=== PATIENT | female | born 1995 | race African-American/Black ===

== ENCOUNTER 2019-05-04 11:08 | Emergency (ER) | payer SELFPAY ==
[2019-05-04] MEDS ORDERED: morphine CARPU-JECT 4 MG/1 ML DISP.SYRIN IVPUSH ONE (11:37)
[2019-05-04] MEDS ORDERED: morphine SULFATE 4 MG/ML VIAL ONE (11:47)
[2019-05-04 11:52] VITALS: BP 134/98; PULSE 69; TEMP 97.6; BMI 39.9
[2019-05-04 12:21] LABS: BASO % 0.3 % (0-2.0); EOS % 0.2 % (0-4.5); HEMATOCRIT 37.5 % (32.4-45.2); HEMOGLOBIN 12.5 GM/dL (10.7-15.3); LYMPH % 14.5 % (8-40); MCH 28.1 pg (25.7-33.7); MCHC 33.3 g/dl (32.0-36.0); MEAN CELL VOLUME 84.3 fl (80-96); MEAN PLT VOLUME 8.5 fl (7.5-11.1); MONO % 4.5 % (3.8-10.2); NEUT % 80.5 % (42.8-82.8); PLATELET COUNT 317 K/MM3 (134-434); RBC 4.45 M/mm3 (3.60-5.2); RDW 14.1 % (11.6-15.6); WHITE BLOOD COUNT 7.4 K/mm3 (4.0-10.0)
--- NOTE | 2019-05-04 12:24 | PDOC ---
History of Present Illness - General Stated Complaint: BACK,ABD PAIN Time Seen by Provider: 05/04/19 11:30 - History of Present Illness Initial Comments: 05/04/19 11:59 The patient is a 24 year old female with a PMH asthma and eczema who presents with acute onset of back and abdominal pain. Patient woke patient from sleep around 7 a.m. and is intermittent, cramping and radiates from her back to her left lower abdomen. Multiple episodes of greenish emesis. No fevers/chills, no dysuria, hematuria, increased urgency/frequency. Last PO intake was yesterday. Last BM yesterday evening and was normal. NKDA Surgical: none reported Past History - Past Medical History Allergies/Adverse Reactions: Allergies Allergy/AdvReac Type Severity Reaction Status Date / Time No Known Allergies Allergy Verified 05/04/19 11:31 COPD: No - Suicide/Smoking/Psychosocial Hx Smoking History: Unknown if ever smoked Have you smoked in the past 12 months: No Hx Alcohol Use: No Drug/Substance Use Hx: No Review of Systems - Review of Systems Constitutional: No: Chills, Fever Respiratory: No: Cough, Shortness of Breath Cardiac (ROS): No: Chest Pain, Lightheadedness, Palpitations, Syncope ABD/GI: Yes: Vomiting, Abdominal cramping (intermittent sharp, LLQ/L flank). No : Constipated, Diarrhea : No: Burning, Frequency, Urgency *Physical Exam - Vital Signs Last Vital Signs Temp Pulse Resp BP Pulse Ox 97.6 F 69 16 134/98 100 05/04/19 11:10 05/04/19 11:10 05/04/19 11:10 05/04/19 11:10 05/04/19 11:10 - Physical Exam Comments: Triage VS reviewed @ initial presentation patient uncomfortable, tearful, LLQ abdominal TTP; full PE deferred until s/p analgesia General Appearance: Yes: Nourished, Obese, Other (PE performed s/p analgesia) HEENT: positive: Normal Voice, Hearing Grossly Normal Neck: positive: Trachea midline, Supple Respiratory/Chest: positive: Lungs Clear, Normal Breath Sounds Cardiovascular: positive: Regular Rhythm, S1, S2 Vascular Pulses: Dorsalis-Pedis (R): 2+, Doralis-Pedis (L): 2+ Gastrointestinal/Abdominal: positive: Other (soft, LLQ TTP w/o peritoneal sign, L CVAT). negative: Hernia, Mass Extremity: positive: Normal Capillary Refill, Normal Inspection Integumentary: positive: Normal Color, Dry, Warm Neurologic: positive: truer pinion and wheel II-XII NML intact, Fully Oriented, Alert ED Treatment Course - LABORATORY CBC & Chemistry Diagram: 05/04/19 12:10 05/04/19 12:10 - RADIOLOGY Radiology Studies Ordered: Category Date Time Status TRANSVAGINAL ULTRASOUND US [US] Stat Ultrasound 05/04/19 11:37 Ordered Medical Decision Making - Medical Decision Making 05/04/19 12:55 24 y/o female with acute onset of abdominal/back pain. VS unremarkable Consider ovarian torsion, ectopic vs. renal stone less likely diverticulitis, SBO,mesenteric ischemia, bowel perforation. TVUS, Basic Labs, Urine pending. Morphine for analgesia Will consider CTAP if no torsion/ectopic. 05/04/19 14:46 Urine negative TVUS shows no torsion; patient refusing pelvic exam Patient reassessed @ bedside, analgesia achieved with Morphine for 2-3 hours, however now stating pain has returned; clinical suspicion for renal calculi, will obtain CTAP + Toradol 05/04/19 18:37 CBC, CMP unremarkable CTAP shows: A 3 - 4 mm left ureterovesical junction calculus is seen with resultant mild hydronephrosis. A 2 mm nonobstructing left renal calyceal calculus is noted. UA shows 2+ blood c/w nephrolithiasis Will discharge patient with home with supportive care and referral to urology Clinical Impression: Nephrolithiasis, Initial presentation I discussed the physical exam findings, ancillary test results and final diagnoses with the patient. I answered all of the patient's questions. The patient was satisfied with the care received and felt comfortable with the discharge plan and treatment plan. The patient will return to the Emergency Department with any new, persistent or worsening symptoms. *DC/Admit/Observation/Transfer Diagnosis at time of Disposition: Nephrolithiasis - Discharge Dispostion Disposition: HOME Condition at time of disposition: Good Decision to Admit order: No - Referrals Referrals: Adonay Aranda MD [Primary Care Provider] - Chris Cope MD [Staff Physician] - - Patient Instructions Printed Discharge Instructions: Kidney Stones -- Adult Additional Instructions: You were evaluated today for your abdominal pain. A cat scan of your abdomen showed kidney stones. At this time you are safe for discharge home. You must follow up with a urologist, we have provided a referral or you can call your insurance company for a list of urologists. Drink plenty of water and follow the instructions provided in your discharge paperwork. Return to the ED for any new/worsening/concerning symptoms. - Post Discharge Activity
[2019-05-04 12:44] LABS: INR 0.97 (0.83-1.09); PROTHROMBIN TIME (PATIENT) 11.5 SEC (9.7-13.0)
[2019-05-04 12:46] LABS: ACTIVATED PTT 26.3 SECONDS (25.2-36.5)
[2019-05-04 12:54] LABS: ALBUMIN 4.3 g/dl (3.4-5.0); BILIRUBIN,TOTAL 0.4 mg/dL (0.2-1); BLOOD UREA NITROGEN 12.6 mg/dL (7-18); CALCIUM 9.4 mg/dL (8.5-10.1); POTASSIUM 4.1 mmol/L (3.5-5.1); TOT PROT 7.5 g/dl (6.4-8.2)
--- NOTE | 2019-05-04 13:11 | PDOC ---
Attending Attestation - Resident Resident Name: Lorraine Agruello - ED Attending Attestation I have performed the following: I have examined & evaluated the patient, The case was reviewed & discussed with the resident, I agree w/resident's findings & plan - HPI HPI: 05/04/19 13:08 Healthy 24-year-old female with no significant past medical history other than asthma presents with acute onset of left low back/left groin pain that awoke her from sleep this morning, constant with varying severity Lillian associated with nausea/nonbloody nonbilious vomiting. No abdominal pain, no history of kidney stones or known ovarian cysts, LMP was 8/20 but was a solutions [employer] menses than usual. - Physicial Exam PE: 05/04/19 13:08 Vital signs stable. negative. On arrival, patient was in moderate to severe distress with active retching/ vomiting, on my examination status post morphine patient is much more comfortable and smiling No jaundice or pallor Heart is regular, lungs are clear Abdomen is soft/nondistended. Tender in the left pelvic region with some guarding, no rebound. Mild left CVA discomfort. No palpable hernias or masses. - Medical Decision Making 05/04/19 13:09 24-year-old female with acute onset left low back/pelvic pain, question renal colic versus BEEF PLUCK TRIMMER etiology, negative ruling out ectopic, question cyst/ torsion. Seems less likely GI related. Labs, urinalysis Will need imaging, Transvaginal ultrasound or CT abdomen and pelvis pending results Pain control Reassess 05/04/19 17:35 + L UVJ stone with mild hydro. UA without evidence of infection. feels better after meds, stable for d/c with f/u
[2019-05-04] MEDS ORDERED: SODIUM CHLORIDE 0.9% 500 ML INFUS.BAG IV ONE (14:51)
[2019-05-04] MEDS ORDERED: KETOROLAC TROMETHAMINE 30 MG/1 ML VIAL IVPUSH ONE (14:52)
[2019-05-04] MEDS ORDERED: KETOROLAC TROMETHAMINE 30 MG/1 ML VIAL ONE (16:28)
[2019-05-04 17:17] LABS: EPI CELLS 4.2 /HPF (0-5/HPF); HYALINE CASTS 5 /lpf (0-8); URINE APPEARANCE CLEAR; URINE BACTERIA 4.4 /hpf (NEGATIVE); URINE BILIRUBIN NEGATIVE (NEGATIVE); URINE COLOR YELLOW; URINE GLUCOSE (UA) NEGATIVE (NEGATIVE); URINE KETONE 1+ (NEGATIVE); URINE LEUK ESTERASE NEGATIVE (NEGATIVE); URINE NITRITE NEGATIVE (NEGATIVE); URINE PROTEIN NEGATIVE (NEGATIVE); URINE RBC 12 /hpf (0-4); URINE UROBILINOGEN 0.2 mg/dL (0.2-1.0); URINE WBC 3 /hpf (0-5)
== END 2019-05-04 19:15 | disposition home or self-care (01) ==
LOC: JER 11:08
PROC: 3E0333Z Introduction of Anti-inflammatory into Peripheral Vein, Percutaneous Approach (ICD-10-PCS; principal; 2019-05-04)
PROC: 3E033NZ Introduction of Analgesics, Hypnotics, Sedatives into Peripheral Vein, Percutaneous Approach (ICD-10-PCS; 2019-05-04)
PROC: 3E0337Z Introduction of Electrolytic and Water Balance Substance into Peripheral Vein, Percutaneous Approach (ICD-10-PCS; 2019-05-04)
DX: N20.0 Calculus of kidney (principal)
CPT/HCPCS: 36415; 74176-TC; 76830-TC; 80053; 81003; 84703; 85025; 85610; 85730; 86850; 86900; 86901; 87086; 99283-25

== ENCOUNTER 2021-11-20 09:36 | Emergency (ER) | payer OTHER ==
[2021-11-20 09:51] VITALS: BP 115/61; PULSE 67; TEMP 98.4; BMI 37.8
[2021-11-20] MEDS ORDERED: METOCLOPRAMIDE HCL INJECTION 10 MG/2 ML VIAL IVPUSH ONE (10:22)
[2021-11-20] MEDS ORDERED: SODIUM CHLORIDE 0.9% 500 ML INFUS.BAG IV ONE (10:22)
[2021-11-20] MEDS ORDERED: ACETAMINOPHEN 1000 MG/100 ML BAG IVPB ONE (10:22)
[2021-11-20] MEDS ORDERED: METOCLOPRAMIDE HCL INJECTION 10 MG/2 ML VIAL ONE (10:27)
[2021-11-20] MEDS ORDERED: ACETAMINOPHEN INJECTION 100 ML IVPB ONE (10:27)
[2021-11-20 11:14] LABS: BASO % 0.4 % (0-2.0); EOS % 1.9 % (0-4.5); HEMATOCRIT 38.6 % (32.4-45.2); HEMOGLOBIN 12.9 GM/dL (10.7-15.3); LYMPH % 24.6 % (8-40); MCH 29.3 pg (25.7-33.7); MCHC 33.5 g/dl (32.0-36.0); MEAN CELL VOLUME 87.4 fl (80-96); MONO % 8.8 % (3.8-10.2); NEUT % 64.3 % (42.8-82.8); PLATELET COUNT 314 10^3/uL (134-434); RBC 4.41 M/mm3 (3.60-5.2); RDW 13.5 % (11.6-15.6); WHITE BLOOD COUNT 5.5 K/mm3 (4.0-10.0)
[2021-11-20 11:34] LABS: CALCIUM 9.3 mg/dL (8.5-10.1)
[2021-11-20 11:35] LABS: ALBUMIN 3.7 g/dl (3.4-5.0); BLOOD UREA NITROGEN 11.8 mg/dL (7-18)
[2021-11-20 11:38] LABS: CREATININE 0.7 mg/dL (0.55-1.3)
[2021-11-20 11:40] LABS: TOT PROT 6.7 g/dl (6.4-8.2)
[2021-11-20 11:44] LABS: BILIRUBIN,TOTAL 0.3 mg/dL (0.2-1)
== END 2021-11-20 12:33 | disposition home or self-care (01) ==
LOC: JER 09:36
PROC: 3E0333Z Introduction of Anti-inflammatory into Peripheral Vein, Percutaneous Approach (ICD-10-PCS; principal; 2021-11-20)
PROC: 3E033GC Introduction of Other Therapeutic Substance into Peripheral Vein, Percutaneous Approach (ICD-10-PCS; 2021-11-20)
PROC: 3E033GC Introduction of Other Therapeutic Substance into Peripheral Vein, Percutaneous Approach (ICD-10-PCS; 2021-11-20)
DX: R55 Syncope and collapse (principal)
CPT/HCPCS: 36415; 71046-TC-FY; 80053; 82962; 84703; 85025; 93005; 93010; 99285-25

== ENCOUNTER 2022-10-23 11:59 | Emergency (ER) | payer OTHER ==
[2022-10-23] MEDS ORDERED: SODIUM CHLORIDE 0.9% 500 ML INFUS.BAG IV ONE (12:13)
[2022-10-23] MEDS ORDERED: ACETAMINOPHEN 1000 MG/100 ML BAG IVPB ONE (12:13)
[2022-10-23] MEDS ORDERED: ONDANSETRON 4 MG/2 ML VIAL IVPB ONE (12:13)
[2022-10-23] MEDS ORDERED: morphine CARPU-JECT 4 MG/1 ML DISP.SYRIN IVPUSH ONE (12:15)
[2022-10-23] MEDS ORDERED: ACETAMINOPHEN INJECTION 100 ML IVPB ONE (12:33)
[2022-10-23] MEDS ORDERED: morphine SULFATE 4 MG/ML VIAL ONE ×2 (12:33→19:11)
[2022-10-23] MEDS ORDERED: ONDANSETRON 4 MG/2 ML VIAL ONE (12:33)
[2022-10-23 12:58] VITALS: BP 126/76; PULSE 99; RESP 18; TEMP 97.6; BMI 39.2
[2022-10-23 13:57] LABS: BASO % 0.2 % (0-2.0); EOS % 0.7 % (0-4.5); HEMOGLOBIN 11.6 GM/dL (10.7-15.3); MEAN CELL VOLUME 87.8 fl (80-96); MEAN PLT VOLUME 8.8 fl (7.5-11.1); MONO % 7.6 % (3.8-10.2); NEUT % 72.5 % (42.8-82.8); PLATELET COUNT 280 10^3/uL (134-434); RBC 3.99 M/mm3 (3.60-5.2); RDW 13.5 % (11.6-15.6); WHITE BLOOD COUNT 7.9 K/mm3 (4.0-10.0)
[2022-10-23 13:57] LABS: BILIRUBIN,TOTAL 0.4 mg/dL (0.2-1); BLOOD UREA NITROGEN 7.9 mg/dL (7-18); CALCIUM 8.9 mg/dL (8.5-10.1); CREATININE 0.7 mg/dL (0.55-1.3); TOT PROT 6.3 g/dl (6.4-8.2)
[2022-10-23 16:58] LABS: EPI CELLS >36 /uL (0-25.1); HYALINE CASTS 2 /uL (0-3.1); URINE APPEARANCE CLOUDY; URINE BACTERIA 223 /uL (0-1359); URINE BILIRUBIN NEGATIVE (NEGATIVE); URINE COLOR DK YELLOW; URINE GLUCOSE (UA) NEGATIVE (NEGATIVE); URINE KETONE 1+ (NEGATIVE); URINE LEUK ESTERASE NEGATIVE (NEGATIVE); URINE NITRITE NEGATIVE (NEGATIVE); URINE PROTEIN 3+ (NEGATIVE); URINE RBC 167 /uL (0-23.9); URINE WBC 27 /uL (0-25.8)
[2022-10-23] MEDS ORDERED: morphine SULFATE 4 MG/ML VIAL IVPUSH ONE (17:28)
[2022-10-23] MEDS ORDERED: CEFTRIAXONE 1 GM in DEXTROSE 5%-WATER - 100 ML IVPB ONE (17:28)
[2022-10-23] MEDS ORDERED: CEFTRIAXONE 1 GM/50 ML BAG ONE (17:56)
== END 2022-10-23 21:18 | disposition left against medical advice (07) ==
LOC: JER 11:59 → JERBED 17:57 → UNDOADMOB 17:57 → JER 21:18
PROC: 3E0333Z Introduction of Anti-inflammatory into Peripheral Vein, Percutaneous Approach (ICD-10-PCS; principal; 2022-10-23)
PROC: 3E03329 Introduction of Other Anti-infective into Peripheral Vein, Percutaneous Approach (ICD-10-PCS; 2022-10-23)
PROC: 3E033NZ Introduction of Analgesics, Hypnotics, Sedatives into Peripheral Vein, Percutaneous Approach (ICD-10-PCS; 2022-10-23)
PROC: 3E033NZ Introduction of Analgesics, Hypnotics, Sedatives into Peripheral Vein, Percutaneous Approach (ICD-10-PCS; 2022-10-23)
PROC: 3E033GC Introduction of Other Therapeutic Substance into Peripheral Vein, Percutaneous Approach (ICD-10-PCS; 2022-10-23)
DX: O23.43 Unspecified infection of urinary tract in pregnancy, third trimester (principal); O26.833 Pregnancy related renal disease, third trimester; R31.9 Hematuria, unspecified; N13.2 Hydronephrosis with renal and ureteral calculous obstruction; Z3A.27 27 weeks gestation of pregnancy
CPT/HCPCS: 36415; 76775-TC; 76815-TC; 80053; 81003; 83690; 85025; 87086; 99284-25

== ENCOUNTER 2023-01-15 11:30 | Inpatient (IN) | payer OTHER ==
[2023-01-15 13:50] LABS: BASO % 0.2 % (0-2.0); EOS % 1.5 % (0-4.5); HEMATOCRIT 35.5 % (32.4-45.2); LYMPH % 16.9 % (8-40); MCH 27.6 pg (25.7-33.7); MCHC 33.7 g/dl (32.0-36.0); MEAN CELL VOLUME 81.8 fl (80-96); MEAN PLT VOLUME 9.2 fl (7.5-11.1); MONO % 7.3 % (3.8-10.2); NEUT % 74.1 % (42.8-82.8); PLATELET COUNT 268 10^3/uL (134-434); RBC 4.34 M/mm3 (3.60-5.2); RDW 13.5 % (11.6-15.6); WHITE BLOOD COUNT 9.9 K/mm3 (4.0-10.0)
[2023-01-15 14:00] LABS: INR 0.97 (0.83-1.09); PROTHROMBIN TIME (PATIENT) 11.3 SEC (9.7-13.0)
[2023-01-15] MEDS: DEXTROSE 5%-LACTATED RINGERS 1,000 ML IV SCH ×2 (14:00→21:20)
[2023-01-15 14:09] LABS: POTASSIUM 4.3 mmol/L (3.5-5.1)
[2023-01-15 14:09] LABS: POC NITRAZINE POS
[2023-01-15 14:12] LABS: CALCIUM 9.3 mg/dL (8.5-10.1)
[2023-01-15 14:13] LABS: ALBUMIN 2.8 g/dl (3.4-5.0)
[2023-01-15 14:16] LABS: CREATININE 0.6 mg/dL (0.55-1.3)
[2023-01-15 14:18] LABS: BILIRUBIN,TOTAL 0.6 mg/dL (0.2-1); TOT PROT 6.5 g/dl (6.4-8.2)
[2023-01-15 14:21] LABS: BLOOD UREA NITROGEN 11.5 mg/dL (7-18)
[2023-01-15 14:53] VITALS: BMI 40.4
[2023-01-15] MEDS ORDERED: OXYTOCIN 30 UNITS in 0.9% NS 30 UNIT/500 ML INFUS.BAG IVPB ONE (19:33)
[2023-01-15] MEDS: OXYTOCIN 30 UNITS in 0.9% NS 30 UNIT/500 ML INFUS.BAG IVPB SCH (19:45)
[2023-01-15] MEDS ORDERED: SODIUM CHLORIDE 500 ML IV STA (22:51)
[2023-01-15] MEDS ORDERED: morphine CARPU-JECT 8 MG/1 ML DISP.SYRIN IVPB ONE (22:51)
[2023-01-15] MEDS ORDERED: morphine SULFATE 4 MG/ML VIAL ONE (23:08)
[2023-01-16] MEDS ORDERED: morphine CARPU-JECT 8 MG/1 ML DISP.SYRIN IVPB ONE (05:58)
[2023-01-16] MEDS ORDERED: morphine SULFATE 4 MG/ML VIAL ONE (06:01)
[2023-01-16] MEDS ORDERED: FENTANYL/BUPIVACAINE/NS/PF - PCEA - 50 ML DISP.SYRIN EP ONE (07:11)
[2023-01-16] MEDS ORDERED: NALOXONE HCL 0.4 MG/ML VIAL IVPUSH PRN (07:23)
[2023-01-16] MEDS ORDERED: BUPIVACAINE HCL/PF 0.25% (2.5MG/ML) 10 ML VIAL ONE (07:25)
[2023-01-16] MEDS ORDERED: FENTANYL CITRATE/PF 50 MCG/ML VIAL ONE (07:25)
[2023-01-16] MEDS ORDERED: FENTANYL/BUPIVACAINE/NS/PF - PCEA - 50 ML DISP.SYRIN EP SCH (07:30)
[2023-01-16] MEDS ORDERED: SODIUM CHLORIDE 1,000 ML IV ONE (09:00)
[2023-01-16] MEDS ORDERED: LIDOCAINE HCL 1% PRESERVATIVE FREE - 30ML VIAL ONE (10:25)
[2023-01-16] MEDS ORDERED: OXYTOCIN 20 UNITS in 0.9% NS 20 UNIT/1,000 ML INFUS.BAG IV ONE (10:26)
[2023-01-16] MEDS ORDERED: BENZOCAINE 28 GM HEMORRHOIDAL OINTMENT TP PRN (11:58)
[2023-01-16] MEDS ORDERED: WITCH HAZEL 50% (TUCKS) 40 PAD/JAR PAD TP PRN (11:58)
[2023-01-16] MEDS ORDERED: OXYTOCIN 20 UNITS in 0.9% NS 20 UNIT/1,000 ML INFUS.BAG IV SCH (12:00)
[2023-01-16 12:22] LABS: CORD BASE EXCESS -8.6 mmol/L (0-2); CORD HCO3 17.6 mmHg (20-29); CORD PCO2 38.8 mmHg (30-78); CORD pH 7.275 (7.14-7.44)
[2023-01-16 12:31] LABS: CORD BASE EXCESS -5.3 mmol/L (0-2); CORD HCO3 22.3 mmHg (20-29); CORD PCO2 51.2 mmHg (30-78); CORD pH 7.257 (7.14-7.44)
[2023-01-16] MEDS: IBUPROFEN 600 MG TABLET (FP) PO PRN ×2 (17:38→21:57)
[2023-01-16] MEDS: DEXTROSE 5%-LACTATED RINGERS 1,000 ML IV SCH (20:19)
[2023-01-16] MEDS: OXYTOCIN 30 UNITS in 0.9% NS 30 UNIT/500 ML INFUS.BAG IVPB SCH (20:19)
[2023-01-16] MEDS: FERROUS SO4 325 MG TABLET (FP) PO SCH (21:57)
[2023-01-17] MEDS: ACETAMINOPHEN 325 MG TABLET (FP) PO PRN ×2 (02:19→17:40)
[2023-01-17 07:01] LABS: BASO % 0.2 % (0-2.0); EOS % 0.8 % (0-4.5); HEMATOCRIT 27.9 % (32.4-45.2); HEMOGLOBIN 9.5 GM/dL (10.7-15.3); LYMPH % 17.2 % (8-40); MCH 27.7 pg (25.7-33.7); MEAN CELL VOLUME 81.4 fl (80-96); MEAN PLT VOLUME 9.1 fl (7.5-11.1); NEUT % 73.8 % (42.8-82.8); PLATELET COUNT 206 10^3/uL (134-434); RBC 3.43 M/mm3 (3.60-5.2); RDW 13.9 % (11.6-15.6); WHITE BLOOD COUNT 13.9 K/mm3 (4.0-10.0)
[2023-01-17] MEDS: FERROUS SO4 325 MG TABLET (FP) PO SCH ×2 (09:55→22:09)
[2023-01-17] MEDS: IBUPROFEN 600 MG TABLET (FP) PO PRN ×2 (09:55→20:15)
[2023-01-17] MEDS: PRENATAL VITAMINS W/ FOLIC ACID TABLET (FP) PO SCH (09:55)
[2023-01-17] MEDS: DOCUSATE SODIUM 100 MG CAPSULE (FP) PO PRN ×2 (10:00→22:09)
[2023-01-17] MEDS ORDERED: SENNOSIDES/DOCUSATE COMBO (SENNA PLUS) TABLET (UD) PO PRN (22:00)
[2023-01-18] MEDS: IBUPROFEN 600 MG TABLET (FP) PO PRN (08:12)
[2023-01-18] MEDS: DOCUSATE SODIUM 100 MG CAPSULE (FP) PO PRN (09:14)
[2023-01-18] MEDS: FERROUS SO4 325 MG TABLET (FP) PO SCH (09:14)
[2023-01-18] MEDS: PRENATAL VITAMINS W/ FOLIC ACID TABLET (FP) PO SCH (09:14)
[2023-01-18 10:25] VITALS: BP 134/86; PULSE 76; RESP 16; TEMP 97.7
== END 2023-01-18 10:45 | disposition home or self-care (01) | DRG 807 ==
LOC: JDEL 11:30 → JLDR 12:40 → J3W 01-16 13:40
PROVIDERS: ADMIT Obstetrics & Gynecology Maternal & Fetal Medicine; ATTEND Obstetrics & Gynecology Maternal & Fetal Medicine
PROC: 10E0XZZ Delivery of Products of Conception, External Approach (ICD-10-PCS; principal; 2023-01-16)
DX: O42.92 Full-term premature rupture of membranes, unspecified as to length of time between rupture and onset of labor (principal); O13.4 Gestational [pregnancy-induced] hypertension without significant proteinuria, complicating childbirth; O99.214 Obesity complicating childbirth; Z3A.38 38 weeks gestation of pregnancy; Z37.0 Single live birth
CPT/HCPCS: 36415; 36600; 59025; 80053; 82803; 83986-QW; 85025; 85610; 85730; 86780; 86850; 86900; 86901; 88307-TC; C9803-CS; U0003; U0005

== ENCOUNTER 2023-12-25 07:29 | Emergency (ER) | payer OTHER ==
[2023-12-25 07:40] VITALS: BP 137/89; PULSE 80; RESP 20; TEMP 98.9; BMI 39.1
[2023-12-25] MEDS ORDERED: DOXYCYCLINE HYCLATE 100 MG CAPSULE PO ONE (08:11)
[2023-12-25] MEDS ORDERED: LIDOCAINE HCL 1%, 10 MG/ML (20ML VIAL) ONE (08:12)
[2023-12-25 08:17] LABS: EPI CELLS >36 /uL (0-25.1); HYALINE CASTS 4 /uL (0-3.1); URINE APPEARANCE TURBID; URINE BACTERIA 5462 /uL (0-1359); URINE BILIRUBIN NEGATIVE (NEGATIVE); URINE COLOR YELLOW; URINE GLUCOSE (UA) NEGATIVE (NEGATIVE); URINE KETONE TRACE (NEGATIVE); URINE LEUK ESTERASE 1+ (NEGATIVE); URINE NITRITE NEGATIVE (NEGATIVE); URINE PROTEIN TRACE (NEGATIVE); URINE RBC 14 /uL (0-23.9); URINE WBC 91 /uL (0-25.8)
[2023-12-25] MEDS: DOXYCYCLINE HYCLATE 100 MG CAPSULE PO ONE (08:18)
== END 2023-12-25 08:27 | disposition home or self-care (01) ==
LOC: JER 07:29
DX: N76.0 Acute vaginitis (principal); J02.9 Acute pharyngitis, unspecified; M54.9 Dorsalgia, unspecified
CPT/HCPCS: 36415; 81003; 84703; 87086; 87491; 87591; 87661; 99284-25

== ENCOUNTER 2024-03-29 11:10 | Emergency (ER) | payer OTHER ==
[2024-03-29 11:18] VITALS: BP 136/83; PULSE 69; RESP 16; TEMP 98.6; BMI 36.2
[2024-03-29 14:28] LABS: HIV INTERPRETATION NEGATIVE (NEGATIVE)
== END 2024-03-29 13:01 | disposition home or self-care (01) ==
LOC: JERFT 11:10
DX: Z11.3 Encounter for screening for infections with a predominantly sexual mode of transmission (principal); Z32.02 Encounter for pregnancy test, result negative
CPT/HCPCS: 36415; 84703; 86803; 87389; 87491; 87591; 87661; 99283-25

== ENCOUNTER 2024-05-02 17:49 | Emergency (ER) | payer OTHER ==
[2024-05-02 17:58] VITALS: BP 141/83; PULSE 76; RESP 18; TEMP 99.5; BMI 35.2
[2024-05-02] MEDS ORDERED: IBUPROFEN 600 MG TABLET (FP) PO ONE (18:19)
[2024-05-02] MEDS: IBUPROFEN 600 MG TABLET (FP) PO ONE (18:20)
== END 2024-05-02 18:43 | disposition home or self-care (01) ==
LOC: JERFT 17:49 → JER 17:49 → JERFT 18:43
DX: M62.830 Muscle spasm of back (principal); M54.2 Cervicalgia; M79.631 Pain in right forearm; M25.531 Pain in right wrist; V43.32XA Unspecified car occupant injured in collision with other type car in nontraffic accident, initial encounter
CPT/HCPCS: 99283-25

== ENCOUNTER 2024-05-24 15:05 | Emergency (ER) | payer OTHER ==
[2024-05-24 15:18] VITALS: BP 130/84; PULSE 93; RESP 16; TEMP 98.3; BMI 34.9
[2024-05-24 16:10] LABS: HCG,QUALITATIVE URINE Negative
[2024-05-24 16:12] LABS: EPI CELLS >36 /uL (0-25.1); HYALINE CASTS 0 /uL (0-3.1); PH,URINE 5.5 (5.0-8.0); URINE APPEARANCE CLOUDY; URINE BACTERIA 1071 /uL (0-1359); URINE BILIRUBIN NEGATIVE (NEGATIVE); URINE COLOR YELLOW; URINE GLUCOSE (UA) NEGATIVE (NEGATIVE); URINE KETONE NEGATIVE (NEGATIVE); URINE LEUK ESTERASE 2+ (NEGATIVE); URINE NITRITE NEGATIVE (NEGATIVE); URINE PROTEIN NEGATIVE (NEGATIVE); URINE RBC 4 /uL (0-23.9); URINE UROBILINOGEN 0.2 mg/dL (0.2-1.0); URINE WBC 13 /uL (0-25.8)
[2024-05-24] MEDS ORDERED: DOXYCYCLINE HYCLATE 100 MG CAPSULE PO ONE (16:14)
[2024-05-24] MEDS ORDERED: LIDOCAINE HCL 1%, 10 MG/ML (20ML VIAL) ONE (16:19)
[2024-05-24] MEDS: DOXYCYCLINE HYCLATE 100 MG CAPSULE PO ONE (16:27)
[2024-05-24 17:21] LABS: HIV INTERPRETATION NEGATIVE (NEGATIVE)
== END 2024-05-24 16:25 | disposition home or self-care (01) ==
LOC: JERFT 15:05
DX: Z20.2 Contact with and (suspected) exposure to infections with a predominantly sexual mode of transmission (principal)
CPT/HCPCS: 36415; 81003; 84703; 86780; 86803; 87086; 87389; 87491; 87591; 87661; 99284-25